=== PATIENT | male | born 2000 | race Caucasian/White ===

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

== ENCOUNTER 2019-09-29 23:25 | Emergency (ER) | payer OTHER ==
[~2019-09-29] VITALS: Ht 185.4 cm; Wt 102.1 kg
[~2019-09-29 23:25] MED LIST changes: +RECTICARE15 GM T
[2019-09-29] MEDS ORDERED: OXYBUTYNIN5 MG PO (23:29)
[2019-09-30] MEDS ORDERED: ZYRTEC10 MG PO (01:27)
[2019-09-30] MEDS ORDERED: AMOXICILLIN500 M2 PO (01:27)
== END 2019-09-30 02:05 | disposition home or self-care (01) ==
LOC: ED 23:25
DX: H66.92 Otitis media, unspecified, left ear (principal); J02.9 Acute pharyngitis, unspecified